=== PATIENT | female | born 1975 | race Caucasian/White ===

== ENCOUNTER 2016-12-29 13:32 | Outpatient (CLI) | payer BC ==
[~2016-12-29] VITALS: Ht 158.8 cm; Wt 110.2 kg
[2016-12-29 13:43] VITALS: BP 123/84
[2016-12-29] MEDS ORDERED: ASPI-586 PO (14:27)
[2016-12-29] MEDS ORDERED: ESCI20TA45 PO (14:27)
[2016-12-29] MEDS ORDERED: BUPR100T8 PO (14:27)
[2016-12-29] MEDS ORDERED: IBUP-2055 PO (14:27)
[2016-12-29] MEDS ORDERED: PSYL0.5244 PO (14:27)
[2016-12-29] MEDS ORDERED: OMEP20TA33 PO (14:27)
[2016-12-29] MEDS ORDERED: RT-ALBUINH IH (14:27)
[2016-12-29] MEDS ORDERED: AMOX1TAB12 PO (14:27)
[2016-12-29] MEDS ORDERED: MELA1TAB15 PO (14:27)
[2016-12-29] MEDS ORDERED: IPRA3AMP IH (14:27)
[2016-12-29] MEDS ORDERED: VITA100033 PO (14:27)
[2016-12-29] MEDS ORDERED: GABA-488 PO (14:27)
== END 2016-12-29 14:00 | disposition home or self-care (01) ==
LOC: PREOP 13:32
PROVIDERS: ATTEND Podiatrist Foot Surgery
DX: Z01.818 Encounter for other preprocedural examination (principal); M72.2 Plantar fascial fibromatosis
CPT/HCPCS: 87081

== ENCOUNTER 2016-12-31 06:00 | Day surgery (SDC) | payer BC ==
--- NOTE | 2016-12-29 18:57 | HISTORY AND PHYSICAL ---
DATE OF SERVICE: DATE OF ADMISSION: 12/31/2016. CHIEF COMPLAINT: "Have right foot pain, I have plantar fasciitis, want it corrected, Dr. Kingston to do it this Tuesday." ALLERGIC TO MEDICATIONS: SULFA AND ____. MEDICATIONS: Now on has a list, Prilosec, ibuprofen, daily fiber, vitamin E, melatonin, baby aspirin, bupropion SR, Celexa 20 mg, breathing treatments, ipratropium bromide and albuterol sulfate, albuterol inhaler p.r.n., gabapentin 300 mg a day, Augmentin for a bite, animal. PAST SURGICAL HISTORY: Open heart, holes in it; complete hysterectomy. The patient states she saw ____ last at [place], [place] and told it was okay to have surgery. FAMILY HISTORY: Dad, diabetes and heart disease. Denies asthma, TB, lung disease or cancer. REVIEW OF SYSTEMS: HEAD: Denies headache, dizziness. EYES, EARS, NOSE AND THROAT: Denies diplopia, tinnitus, sore throat. RESPIRATORY: The patient states she has asthma. The patient states she never smoked. "I get a cough." Denies short of breath or wheezing at this moment. HEART: No history of heart problems or chest pain. Just checked out by [employer] last week. GASTROINTESTINAL: Appetite good. Denies blood in the stools, diarrhea, constipation, nausea or vomiting. GENITOURINARY: Denies blood, pain or frequency. PHYSICAL EXAMINATION: GENERAL: The patient is a white female, well nourished, well developed, in no acute respiratory distress at rest. VITAL SIGNS: Weight 241, blood pressure 120/80, pulse 84. EARS: No drainage noted. EYES: No conjunctivitis or icterus. THROAT: Noninflamed. Tonsils removed. NECK: Thyroid not enlarged. No abnormal cervical lymphadenopathy noted. HEART: Regular rate and rhythm. LUNGS: Clear to auscultation. ABDOMEN: Soft. Liver and spleen nonpalpable. LOWER EXTREMITIES: Good dorsalis pedis pulses. The patient is okay to have surgery, will be on standby if has any problems. Job ID: [id number] DocumentID: [id number] Dictated Date: 12/29/2016 15:18:15 Farmworker Animal Date: 12/29/2016 16:43:22 Dictated By: FELIX KULKARNI DO
[~2016-12-31] VITALS: Ht 158.8 cm; Wt 110.2 kg
[~2016-12-31 06:00] MED LIST: AMOX1TAB12 PO; ASPI-586 PO; BUPR100T8 PO; ESCI20TA45 PO; GABA-488 PO; IBUP-2055 PO; IPRA3AMP IH; MELA1TAB15 PO; OMEP20TA33 PO; PSYL0.5244 PO; RT-ALBUINH IH; VITA100033 PO
[2016-12-31 06:30] VITALS: BP 125/84
[2016-12-31] MEDS ORDERED: LACTATED RINGERS 1,000 ML IV PRN ×2 (06:31→07:43)
[2016-12-31] MEDS ORDERED: proPOfol 200 MG/20 ML (DIPRIVAN) VIAL IV ONE (06:42)
[2016-12-31] MEDS ORDERED: SEVOFLURANE (ULTANE) 15 ML INHAL SOLN ONE (06:42)
[2016-12-31] MEDS ORDERED: MIDAZOLAM 2 MG/2 ML (VERSED) VIAL ONE (06:42)
[2016-12-31] MEDS ORDERED: LIDOCAINE PF 2% 5 ML (XYLOCAINE) VIAL ONE (06:42)
[2016-12-31] MEDS ORDERED: fentaNYL INJECTION 100 MCG/2 ML AMP ONE (06:42)
[2016-12-31] MEDS ORDERED: ONDANSETRON 4 MG/2 ML (SDV) Z0FRAN ONE (06:42)
[2016-12-31] MEDS ORDERED: DEXAMETHASONE 10 MG/ML (DECADRON) 1 ML VIAL ONE ×2 (06:42→07:05)
[2016-12-31] MEDS ORDERED: FAMOTIDINE 20MG/2ML IV (PEPCID) ONE (06:50)
[2016-12-31] MEDS ORDERED: MEPIVACAINE (CARBOCAINE) 2% 20 ML VIAL ONE (07:05)
[2016-12-31] MEDS ORDERED: BUPIVACAINE 0.25% 30 ML (SENSORCAINE) VIAL ONE (07:05)
[2016-12-31] MEDS ORDERED: ceFAZolin 1,000 MG (ANCEF) VIAL ONE (07:28)
[2016-12-31] MEDS ORDERED: NS (IVPB) 50 ML ONE (07:28)
--- NOTE | 2016-12-31 07:41 | Progress Note-Pre Operative ---
Pre-Operative Progress Note H&P Reviewed The H&P was reviewed, patient examined and no changes noted. Date Seen by Provider: Dec 31, 2016 Time Seen by Provider: 07:30 Date H&P Reviewed: Dec 31, 2016 Time H&P Reviewed: 07:30 Pre-Operative Diagnosis: plantar fascitis right foot. FELIX LAYTON DPM Dec 31, 2016 7:41 am
[2016-12-31] MEDS ORDERED: ONDANSETRON 4 MG/2 ML (SDV) Z0FRAN IVP PRN (07:45)
[2016-12-31] MEDS ORDERED: morphine INJ 10 MG/ML 1ML (SYR OR VIAL) IVP PRN (07:45)
[2016-12-31] MEDS ORDERED: FAMOTIDINE 20MG/2ML IV (PEPCID) IV ONE (07:45)
[2016-12-31] MEDS ORDERED: ceFAZolin 1 GM/NS 50 ML IVPB IV ONE ×2 (08:30)
--- NOTE | 2016-12-31 08:38 | Progress Note-Post Operative ---
Post-Operative Progess Note Surgeon (s)/Fitter/Welder (s) Surgeon FELIX LAYTON DPM Fitter/Welder: none Pre-Operative Diagnosis plantar fascitis right foot. Post-Operative Diagnosis same Procedure & Operative Findings Date of Procedure 12/31/16 Procedure Performed/Findings endoscopic plantar fasciotomy ribght foot Anesthesia Type general with infiltration Estimated Blood Loss Estimated blood loss (mL): min Specimens/Packing Specimens Removed none FELIX LAYTON DPM Dec 31, 2016 8:38 am
--- NOTE | 2016-12-31 08:38 | Discharge Instructions ---
Discharge Instructions Discharge Medications New, Converted or Re-Newed RX: RX Given to Pt/Family Patient Instructions Patient Instructions 1. Follow up in office in 2 weeks. 2. Diet as tolerated. 3. Activity as tolerated. Activity & Diet Activity as Tolerated: Yes FELIX LAYTON DPM Dec 31, 2016 8:38 am
[2016-12-31] MEDS ORDERED: LACTATED RINGERS 1,000 ML IV SCH (08:40)
[2016-12-31] MEDS ORDERED: HYDROcodone/APAP 5 MG/325 MG (LORTAB) TAB PO PRN (08:45)
[2016-12-31 09:05] VITALS: BP 113/75
[2016-12-31 09:35] VITALS: BP 111/75
[2016-12-31] MEDS ORDERED: HYDR-3875 PO (09:35)
[2016-12-31 10:05] VITALS: BP 108/74
[2016-12-31 10:35] VITALS: BP 108/74
--- NOTE | 2016-12-31 10:45 | Physical Therapy Ortho Eval ---
PT Orthopedic Evaluation Type of Surgery Plantar Fascitis Prior Level of Function Current Living Status: Significant Other Locomotion (Upon Admit): Independent Established Durable Medical Eq: Crutches Patient owns crutches and has used them in the past. Motor Control Motor Control: Motor Control WNL ROM R foot currently limited due to s/p plantar fascitis Strength Strength: WFL Transfer Transfers (B, C, W/C) (FIM): 6 Gait Gait Assistive Device: Crutches Patient ambulates WBAT with crutches. She is instructed on proper ambulation with crutches Right Lower Extremity: Right Weight Bearing Status RLE: Weight Bearing/Tolerated Left Lower Extremity: Left Weight Bearing Status LLE: Full Weight Bearing Gait (FIM): 1 Distance (FIM): 1=up to 49 ft Distance: 25' Summary/Comments patient demonstrated knowledge of proper ambulation with crutches Treatment Rendered Treatment: Gait Train Assessment/Goals Goal Time Frame: 1 Visit Understands HEP: Yes Safe Ambulation: Yes Plan Treatment Plan: Discharge PT/Family Agrees to Plan: Yes Time Time In: 1015 Time Out: 1025 Total Billed Treatment Time: 10 Billed Treatment Time 1 visit EVL 10 min EARL STANLEY PT Dec 31, 2016 10:45
--- NOTE | 2016-12-31 12:20 | OPERATIVE REPORT ---
DATE OF SERVICE: 12/31/2016 PREOPERATIVE DIAGNOSIS: Plantar fasciitis, right foot. POSTOPERATIVE DIAGNOSIS: Plantar fasciitis, right foot. NAME OF OPERATION: Endoscopic plantar fasciotomy, right foot. DESCRIPTION OF OPERATION: With the patient in the supine position having been ____ by general anesthetic, sterile prep and drape were performed and a Christopher bandage was applied above the level of the right ankle. Appropriate measurements were taken and a 1 cm incision was made in the medial aspect of the left heel. This was deepened with the sharp and blunt dissection. Channeling instrument was then placed medially to laterally through and through the left heel. Trocar and cannula were placed and the plantar fascia was identified. A hook knife was then placed into the cannula and the middle slip of the plantar fascia was released in toto. The plantar aspect of the right foot was thoroughly palpated. At this time, it was appreciated. There had been total release of the plantar fascia. The cannula was removed. The incisions were closed medially and laterally with one horizontal mattress suture of 4-0 Prolene. The surgical site was infiltrated with 5 mL of 50:50 mixture of 0.5% Marcaine plain, 1% Carbocaine plain and 10 mg of Decadron. Following removal of the tourniquet, Adaptic with sterile corrective compressive dressing were applied, carried above the level of the right ankle, covered with circular Coban. The patient tolerated the procedure well with minimal blood loss and left the OR to the PAR in apparent good condition. She is to be seen in the office in 2 weeks for appropriate followup care. Job ID: [id number] DocumentID: [id number] Dictated Date: 12/31/2016 08:48:54 Dental Resident Date: 12/31/2016 12:19:27 Dictated By: FELIX LAYTON DPM
== END 2016-12-31 10:35 | disposition home or self-care (01) ==
LOC: SDC 06:00
PROVIDERS: ATTEND Podiatrist Foot Surgery
DX: M72.2 Plantar fascial fibromatosis (principal); I10 Essential (primary) hypertension; E78.2 Mixed hyperlipidemia; K21.9 Gastro-esophageal reflux disease without esophagitis; J45.909 Unspecified asthma, uncomplicated; M41.9 Scoliosis, unspecified; E66.01 Morbid (severe) obesity due to excess calories; Z68.41 Body mass index [BMI] 40.0-44.9, adult; Z79.899 Other long term (current) drug therapy

== ENCOUNTER 2019-04-17 15:15 | Emergency (ER) | payer BC ==
[~2019-04-17] VITALS: Ht 157 cm; Wt 90.7 kg
[~2019-04-17 15:15] MED LIST changes: +HYDR-3875 PO; -IBUP-2055 PO; +IBUP-2473 PO; -IPRA3AMP IH; +IPRA3AMP31 IH; +LORA0.5T
[2019-04-17] MEDS ORDERED: LIDOCAINE/EPI 2% 1:100,00 (XYLOCAINE) 20 ML VIAL ONE ×2 (15:18→15:45)
[2019-04-17] MEDS ORDERED: ONDANSETRON 4 MG/2 ML (SDV) Z0FRAN ONE (15:28)
--- NOTE | 2019-04-17 15:40 | NUR ---
TECH IRRIGATED WOUND PER DR ORDER WITH NS.
[2019-04-17 15:59] LABS: CARBON DIOXIDE 22 MMOL/L (21-32); CHLORIDE 95 MMOL/L (98-107); SODIUM 133 MMOL/L (135-145)
[2019-04-17 16:00] LABS: BILIRUBIN,TOTAL 0.7 MG/DL (0.1-1.0); BUN/CREATININE RATIO 19; CALCIUM 9.3 MG/DL (8.5-10.1); CREATININE SERUM 0.53 MG/DL (0.60-1.30); GFR ESTIMATED > 60; GLUCOSE 475 MG/DL (70-105)
[2019-04-17] MEDS ORDERED: IOHEXOL 350 MG/ML 100 ML (OMNIPAQUE 350) VIAL IV ONE (16:00)
[2019-04-17] MEDS ORDERED: NS 100 ML (IVPB) BAG IV ONE (16:00)
[2019-04-17] MEDS ORDERED: HOLD METFORMIN - RECEIVED CONTRAST 20 ML VIAL IV SCH (16:00)
[2019-04-17] MEDS ORDERED: CATHETER FLUSH 10 ML SYR IV PRN (16:00)
[2019-04-17 16:01] LABS: ALANINE AMINOTRANSFERASE 94 U/L (0-55); ALBUMIN 4.5 GM/DL (3.2-4.5); ALKALINE PHOSPHATASE 160 U/L (40-136); WHITE BLOOD COUNT 4.6 10^3/uL (4.3-11.0)
[2019-04-17 16:02] LABS: BASOPHILS % (AUTO) 0 % (0-10); EOSINOPHILS # (AUTO) 0.2 10^3/uL (0.0-0.3); EOSINOPHILS % (AUTO) 5 % (0-10); HEMATOCRIT 39 % (35-52); HEMOGLOBIN 14.6 G/DL (11.5-16.0); LYMPHOCYTES # (AUTO) 1.9 X 10^3 (1.0-4.0); LYMPHOCYTES % (AUTO) 41 % (12-44); MEAN CORPUSCULAR HEMOGLOBIN 31 PG (25-34); MEAN CORPUSCULAR HGB CONC 37 G/DL (32-36); MEAN CORPUSCULAR VOLUME 83 FL (80-99); MEAN PLATELET VOLUME 10.1 FL (7.4-10.4); MONOCYTES # (AUTO) 0.4 X 10^3 (0.0-1.0); MONOCYTES % (AUTO) 9 % (0-12); NEUTROPHILS # (AUTO) 2.1 X 10^3 (1.8-7.8); NEUTROPHILS % (AUTO) 44 % (42-75); PLATELET COUNT 242 10^3/uL (130-400); RED CELL DISTRIBUTION WIDTH 12.1 % (10.0-14.5)
[2019-04-17] MEDS ORDERED: fentaNYL INJECTION 100 MCG/2 ML AMP IVP PRN (16:15)
[2019-04-17] MEDS ORDERED: LIDOCAINE/EPI 2% 1:100,00 (XYLOCAINE) 20 ML VIAL INJ ONE ×2 (16:15)
[2019-04-17] MEDS ORDERED: PROMETHAZINE INJ 25 MG/ML (PHENERGAN) AMP IVP ONE (16:15)
[2019-04-17 16:23] LABS: INR 0.9 (0.8-1.4); PROTHROMBIN TIME PATIENT 12.2 SEC (12.2-14.7)
--- NOTE | 2019-04-17 16:27 | ED General ---
General Chief Complaint: Bite-Animal/Human/Insect Stated Complaint: ANIMAL BITE IN CHEEK Nursing Triage Note: ARRIVED VIA AMB TO ER HOLDING LEFT SIDE OF NECK WITH A BLOODY RAG. PT STATES ONE OF HER EXOTIC ANIMALS BIT HER ET STATES THE ANIMAL HAS LONG TEETH. PT STATES IF SHE TAKES THE RAGS OFF THE BLOOD WILL SQUIRT. PT DOES NOT WANT TO STATE THE TYPE OF ANIMAL. PT Nursing Sepsis Screen: No Definite Risk History of Present Illness Date Seen by Provider: Apr 17, 2019 Time Seen by Provider: 16:23 Initial Comments Patient presenting to emergency department for evaluation of animal bite wound to her left face and neck. She would not initially commit to what animal was other than saying it was an exotic animal. She then said that it was a [place]. She explained that it is in the possum family and it is intelligent and is in its sexual phase and became more aggressive and appears to have bit her several times. She said her wound was bleeding profusely initially and her wound does continue to bleed on arrival here in the emergency department but there does not appear to be any arterial bleeding. I asked her how long the teeth were and she estimated approximately 2-3 inches. She says her tetanus and rabies vaccinations are up-to-date and the animals vaccinations are up-to-date as well. She denies any other injuries and appears uncomfortable but is nontoxic. Allergies and Home Medications Allergies Coded Allergies: Sulfa (Sulfonamide Antibiotics) (Verified Allergy, Unknown, RASH, 12/29/16) fluticasone furoate (Verified Allergy, Unknown, ANAPHYLAXIS, 12/29/16) vilanterol (Verified Allergy, Unknown, ANAPHYLAXIS, 12/29/16) Home Medications Albuterol Sulfate 1 Puff Puff, 2 PUFF IH Q4H PRN for WHEEZING, (Reported) 1 PUFF = 90 MCG Amoxicillin/Potassium Clav 1 Each Tablet, 1 EACH PO BID, (Reported) Aspirin 81 Mg Tablet.dr, 81 MG PO HS, (Reported) Bupropion HCl 100 Mg Tablet.er, 100 MG PO HS, (Reported) Escitalopram Oxalate 20 Mg Tablet, 20 MG PO HS, (Reported) Gabapentin 300 Mg Capsule, 300 MG PO TID, (Reported) Hydrocodone/Acetaminophen 1 Each Tablet, 1 TAB PO Q4-6 PRN for PAIN Prescribed by: ADAMA MEDRANO on 12/31/16 0935 Ibuprofen 200 Mg Tablet, 600 MG PO HS, (Reported) take 3 (200mg) tabs Ipratropium/Albuterol Sulfate 3 Ml Ampul.neb, 3 ML IH Q4H PRN for SHORTNESS OF BREATH, (Reported) Melatonin/Pyridoxine 1 Each Tablet, 5 MG PO HS, (Reported) Omeprazole Magnesium 20 Mg Tablet.dr, 20 MG PO DAILY, (Reported) Psyllium Husk 0.52 Gm Capsule, 0.52 GM PO HS, (Reported) Vitamin E Mixed 1,000 Unit Capsule, 1,000 UNIT PO HS, (Reported) Patient Home Medication List Home Medication List Reviewed: Yes Review of Systems Review of Systems Constitutional: no symptoms reported EENTM: no symptoms reported Respiratory: no symptoms reported Cardiovascular: no symptoms reported Gastrointestinal: nausea Musculoskeletal: no symptoms reported Skin: see HPI All Other Systems Reviewed Negative Unless Noted: Yes Past Shloukn-Zgycbx-Tevenb Hx Patient Social History Alcohol Use: Denies Use Recreational Drug Use: No Smoking Status: Never a Smoker Recent Foreign Travel: No Contact w/Someone Who Travel: No Recent Infectious Disease Expo: No Recent Hopitalizations: No Immunizations Up To Date Tetanus Booster (TDap): Unknown Seasonal Allergies Seasonal Allergies: Yes Past Medical History Surgeries: Yes (OPEN HEART SX FOR 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 AGE 26, BREAST LUMPECTOMY, R BUNIONECTOMY ) Hysterectomy Respiratory: Yes Asthma Cardiac: Yes (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 0.0oz. [id number]; 36.00 BMI Method:Stated General Appearance: No Apparent Distress, WD/WN HEENT: PERRL/EOMI Neck: Supple Respiratory: Lungs Clear, No Respiratory Distress Cardiovascular: Regular Rate, Rhythm Gastrointestinal: Non Tender, Soft Back: Normal Inspection Extremity: Normal Capillary Refill Neurologic/Psychiatric: Alert, Oriented x3 Skin: Other (Large deep laceration to left face and neck. Active bleeding with unclear source. There are 4 lacs total. Largest is appx 6cm, then there is a 2cm, and 2 1cm lacs above the large lac.) Procedures/Interventions Wound Location: Face, Neck Wound Length (cm): 10 Wound's Depth, Shape: into muscle, irregular, contused tissue, sub Q Wound Explored: no foreign body removed Irrigated w/ Saline (ccs): 500 Betadine Prep?: No Anesthesia: Lidocaine w/ Epi Volume Anesthetic (ccs): 20 Wound Debrided: moderate Suture: Monocryl Suture Size: 4-0 Number of Sutures: 15 Layer Closure?: 1 Sterile Dressing Applied?: Yes Progress Patient prepped and draped in normal sterile fashion. Approximately 10 cc of lidocaine with epinephrine were used initially and then another 10 cc were needed later on for the additional lacerations. Wound cleansed with chlorhexidine soap and irrigated with 500 cc of saline. There was moderate amount of active bleeding initially and pressure was held in between the times I was placing sutures. Wound continued to use until he put in approximately 10 sutures in the large complex laceration and then 5 additional sutures were used for the other lacerations. Progress/Results/Core Measures Suspected Sepsis Recent Fever Within 48 Hours: No Infection Criteria Present: None New/Unexplained Altered Menta: No Sepsis Screen: No Definite Risk SIRS Temperature: Pulse: 107 Respiratory Rate: 16 Laboratory Tests 04/17/19 15:30: White Blood Count 4.6 Blood Pressure 152 /105 Mean: 121 Laboratory Tests 04/17/19 15:30: Creatinine 0.53L, INR Comment 0.9, Platelet Count 242, Total Bilirubin 0.7 Results/Orders Lab Results Laboratory Tests Test 04/17/19 15:30 Range/Units White Blood Count 4.6 4.3-11.0 10^3/uL Red Blood Count 4.76 4.35-5.85 10^6/uL Hemoglobin 14.6 11.5-16.0 G/DL Hematocrit 39 35-52 % Mean Corpuscular Volume 83 80-99 FL Mean Corpuscular Hemoglobin 31 25-34 PG Mean Corpuscular Hemoglobin Concent 37 H 32-36 G/DL Red Cell Distribution Width 12.1 10.0-14.5 % Platelet Count 242 130-400 10^3/uL Mean Platelet Volume 10.1 7.4-10.4 FL Neutrophils (%) (Auto) 44 42-75 % Lymphocytes (%) (Auto) 41 12-44 % Monocytes (%) (Auto) 9 0-12 % Eosinophils (%) (Auto) 5 0-10 % Basophils (%) (Auto) 0 0-10 % Neutrophils # (Auto) 2.1 1.8-7.8 X 10^3 Lymphocytes # (Auto) 1.9 1.0-4.0 X 10^3 Monocytes # (Auto) 0.4 0.0-1.0 X 10^3 Eosinophils # (Auto) 0.2 0.0-0.3 10^3/uL Basophils # (Auto) 0.0 0.0-0.1 10^3/uL Prothrombin Time 12.2 12.2-14.7 SEC INR Comment 0.9 0.8-1.4 Activated Partial Thromboplast Time 22 L 24-35 SEC Sodium Level 133 L 135-145 MMOL/L Potassium Level 4.0 3.6-5.0 MMOL/L Chloride Level 95 L 98-107 MMOL/L Carbon Dioxide Level 22 21-32 MMOL/L Anion Gap 16 H 5-14 MMOL/L Blood Urea Nitrogen 10 7-18 MG/DL Creatinine 0.53 L 0.60-1.30 MG/DL Estimat Glomerular Filtration Rate > 60 BUN/Creatinine Ratio 19 Glucose Level 475 *H 70-105 MG/DL Calcium Level 9.3 8.5-10.1 MG/DL Corrected Calcium 8.9 8.5-10.1 MG/DL Total Bilirubin 0.7 0.1-1.0 MG/DL Aspartate Amino Transf (AST/SGOT) 60 H 5-34 U/L Alanine Aminotransferase (ALT/SGPT) 94 H 0-55 U/L Alkaline Phosphatase 160 H 40-136 U/L Total Protein 7.0 6.4-8.2 GM/DL Albumin 4.5 3.2-4.5 GM/DL My Orders Orders - IBETH ROSENBAUM DO Lidocaine/Epi 2% 1:100,000 (Xylocaine/Ep (04/17/19 15:18) Ondansetron Injection (Zofran Injectio (04/17/19 15:28) Cbc With Automated Diff (04/17/19 15:39) Comprehensive Metabolic Panel (04/17/19 15:39) Partial Thromboplastin Time (04/17/19 15:39) Protime With Inr (04/17/19 15:39) Ct Angio Neck W (04/17/19 15:39) Lidocaine/Epi 2% 1:100,000 (Xylocaine/Ep (04/17/19 15:45) Iohexol Injection (Omnipaque 350 Mg/Ml 1 (04/17/19 16:00) Received Contrast (Hold Metformin- Contr (04/17/19 16:00) Ns (Ivpb) (Sodium Chloride 0.9% Ivpb Bag (04/17/19 16:00) Sodium Chloride Flush (Catheter Flush Sy (04/17/19 16:00) Fentanyl Injection (Sublimaze Injection (04/17/19 16:15) Promethazine Injection (Phenergan Injec (04/17/19 16:15) Lidocaine/Epi 2% 1:100,000 (Xylocaine/Ep (04/17/19 16:15) Lidocaine/Epi 2% 1:100,000 (Xylocaine/Ep (04/17/19 16:15) Cefazolin 2 Gm/50 Ml Ns (Ancef 2 Gm/50 M (04/17/19 16:30) Ns Iv 1000 Ml (Sodium Chloride 0.9%) (04/17/19 16:30) Insulin (Regular) Human (Humulin R (Per (04/17/19 16:30) Cefazolin Injection (Ancef Injection) (04/17/19 17:30) Cefazolin Injection (Ancef Injection) (04/17/19 17:30) Medications Given in ED Current Medications Medications Dose Ordered Sig/Naif Route Start Time Stop Time Status Last Admin Dose Admin Cefazolin Sodium 1000 mg/Sterile Water 10 ml @ 200 mls/hr ONCE ONCE IV 04/17/19 17:30 04/17/19 17:32 DC 04/17/19 17:52 200 MLS/HR Fentanyl Citrate 50 mcg Q1H PRN IVP 04/17/19 16:15 04/17/19 16:07 50 MCG Insulin Human Regular 10 unit ONCE ONCE IV 04/17/19 16:30 04/17/19 16:31 DC 04/17/19 17:11 10 UNIT Iohexol 100 ml ONCE ONCE IV 04/17/19 16:00 04/17/19 16:01 DC 04/17/19 16:36 75 ML Lidocaine/ Epinephrine 20 ml ONCE ONCE INJ 04/17/19 16:15 04/17/19 16:16 DC 04/17/19 16:11 20 ML Ondansetron HCl 4 mg STK-MED ONCE .ROUTE 04/17/19 15:28 04/17/19 15:34 DC 04/17/19 15:37 8 MG Promethazine HCl 12.5 mg ONCE ONCE IVP 04/17/19 16:15 04/17/19 16:16 DC 04/17/19 16:07 12.5 MG Sodium Chloride 10 ml NEEDED PRN IV 04/17/19 16:00 04/17/19 16:36 10 ML Sodium Chloride 100 ml ONCE ONCE IV 04/17/19 16:00 04/17/19 16:01 DC 04/17/19 16:36 80 ML Vital Signs/I&O 04/17/19 15:15 Temp 37.0 Pulse 107 Resp 16 B/P (MAP) 152/105 (121) Pulse Ox 98 O2 Delivery Room Air Capillary Refill : Less Than 3 Seconds Blood Pressure Mean: 121 Progress Note : Progress Note Patient has a large left complex facial laceration. CT imaging showed no damage to vascular structures but she does have a large hematoma in addition to possible glandular structure damage. I spoke to the trauma surgeon at [facility] Marlene Luna and he said that he could wash out the wound and keep her on antibiotics but they have no ENT or plastics available and he thinks that given there is possible glandular involvement he would prefer her to be sent to a facility with plastics and ENT. I spoke to [facility] and asked if I could speak to the plastic surgeon as she could potentially follow-up as an outpatient but they said that they require her to be transferred and evaluated at the trauma center and then will make further disposition planning including possible further surgery. She was given medications for pain and nausea in addition to Ancef. Patient will be transferred in stable condition via EMS. Departure Impression Primary Impression: Bite by animal Additional Impressions: Complex laceration of face Transaminitis Diabetes mellitus, new onset Disposition: 02 XFER SHT-TRM HOSP Condition: Stable Transfer Transfer Reason: Exceeds level of care Time Spoke to Accepting Phy: 17:30 Transfer Facility: [facility] Method of Transfer: EMS Departure-Patient Inst. Referrals: MEHDI SCHAEFER MD (PCP/Family) Primary Care Physician IBETH ROSENBAUM DO Apr 17, 2019 16:27
[2019-04-17] MEDS ORDERED: inSUlin (REGULAR) HUMAN 1 UNIT/0.01 ML (CHARGE PER UNIT) IV ONE (16:30)
[2019-04-17] MEDS ORDERED: NS IV 1000 ML 1,000 ML IV SCH (16:30)
[2019-04-17] MEDS ORDERED: ceFAZolin 2 GM/50 ML NS 50 ML IV ONE (16:30)
[2019-04-17] MEDS ORDERED: ceFAZolin INJECTION 1,000 MG in WATER (STERILE) FOR INJECTION 10 ML IV ONE ×4 (17:30)
--- NOTE | 2019-04-17 17:38 | Diagnostic Imaging Report ---
INDICATION: Animal bite in the left neck with bleeding. CT imaging of the neck is performed after bolus intravenous administration of iodinated contrast. There is rather extensive gas within the tissues of the left neck with diffuse edema, inflammation and hemorrhage. There is an approximately 1.9 x 1.9 x 2.9 cm hyperdense focus which likely represents hematoma just lateral to the mandibular angle. There is no evidence of injury to the great vessels of the neck. No active contrast extravasation is identified. There may be mild edema or hemorrhage in the left parotid salivary gland. Parotid glands otherwise have low density indicating fatty infiltration. No submandibular hematoma is identified. There is small amount of gas involving the left submandibular salivary gland. No airway encroachment is identified. Thyroid gland is unremarkable in appearance. Note is made of focal lucency in the left cerebellopontine angle which could be secondary to lipoma or epidermoid. There is no evidence of acute osseous abnormality. IMPRESSION: Contusion and hematoma in the left neck with largest hematoma lateral to the left mandibular angle. There may be mild involvement of the left parotid and submandibular salivary glands with significant gas within the soft tissues. There is no evidence of acute osseous abnormality and no great vessel injury is identified. Dictated by: Dictated on workstation # [id number]
[2019-04-17 18:28] VITALS: BP 132/85
== END 2019-04-17 18:28 | disposition short-term general hospital (02) ==
LOC: EDUNIT# 15:15 → ER FS 15:16
DX: S01.81XA Laceration without foreign body of other part of head, initial encounter (principal); S11.91XA Laceration without foreign body of unspecified part of neck, initial encounter; S01.85XA Open bite of other part of head, initial encounter; J45.909 Unspecified asthma, uncomplicated; E11.9 Type 2 diabetes mellitus without complications; F32.9 Major depressive disorder, single episode, unspecified; R74.0 Nonspecific elevation of levels of transaminase and lactic acid dehydrogenase [LDH]; Z88.2 Allergy status to sulfonamides; Z88.8 Allergy status to other drugs, medicaments and biological substances; Z79.82 Long term (current) use of aspirin; W55.81XA Bitten by other mammals, initial encounter
CPT/HCPCS: 12054; 36415; 70498; 80053; 82962; 85025; 85610; 85730

== ENCOUNTER 2019-09-13 11:17 | Emergency (ER) | payer BC ==
[~2019-09-13] VITALS: Ht 157.5 cm; Wt 95.7 kg
[2019-09-13] MEDS ORDERED: methylPREDNISolone 125 MG (Solu-MEDROL) VIAL IVP STA (11:25)
[2019-09-13] MEDS ORDERED: FAMOTIDINE 20MG/2ML IV (PEPCID) IVP STA (11:25)
[2019-09-13] MEDS ORDERED: RT-ALBUTEROL/IPRATROPIUM 3 ML (DUONEB) VIAL INH ONE (11:30)
[2019-09-13] MEDS ORDERED: diphenhydrAMINE 50 MG/ML INJ (BENADRYL) IVP ONE (11:30)
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
--- OUTSIDE RECORDS SUMMARY | 2019-09-13 12:29 | XMS REPORT | Continuity of Care Document ---
Author Organization Unknown Address Unknown Phone Unavailable Allergies Active Description Code Type Severity Reaction Onset Reported/Identified Relationship to Patient Clinical Status Yes fluticasone furoate [id number] Drug Allergy Unknown ANAPHYLAXIS 12/29/2016 Yes Sulfa (Sulfonamide Antibiotics) [id number] Drug Allergy Unknown RASH 017 Yes vilanterol [id number] Drug Allerg y Unknown ANAPHYLAXIS 12/29/2016 Medications There is no data. Problems Date Dx Coded Attending Type Code Diagnosis Diagnosed By 12/31/2016 FELIX LAYTON DPM Ot E66.01 MORBID (SEVERE) OBESITY DUE TO EXCESS CA 12/31/2016 FELIX LAYTON DPM Ot E78.2 MIXED HYPERLIPIDEMIA 12/31/2016 FELIX LAYTON DPM Ot I 10 ESSENTIAL (PRIMARY) HYPERTENSION 12/31/2016 FELIX LAYTON DPM Ot J45.909 UNSPECIFIED ASTHMA, UNCOMPLICATED 12/31/2016 FELIX LAYTON DPM Ot K21.9 GASTRO-ESOPHAGEAL REFLUX DISEASE WITHOUT 12/31/2016 FELIX LAYTON DPM Ot M41.9 SCOLIOSIS, UNSPECIFIED 12/31/2016 FELIX LAYTON DPM Ot M72.2 PLANTAR FASCIAL FIBROMATOSIS 12/31/2016 FELIX LAYTON DPM Ot Z68.41 BODY MASS INDEX (BMI) 40.0-44.9, ADULT 12/31/2016 FELIX LAYTON DPM Ot Z79.899 OTHER RETIREMENT (CURRENT) DRUG THERAPY 01/03/2017 FELIX LAYTON DPM Ot E66.01 MORBID (SEVERE) OBESITY DUE TO EXCESS CA 01/03/2017 FELIX LAYTON DPM Ot E78.2 MIXED HYPERLIPIDEMIA 01/03/2017 FELIX LAYTON DPM Ot I 10 ESSENTIAL (PRIMARY) HYPERTENSION 01/03/2017 FELIX LAYTON DPM Ot J45.909 UNSPECIFIED ASTHMA, UNCOMPLICATED 01/03/2017 FELIX LAYTON DPM Ot K21.9 GASTRO-ESOPHAGEAL REFLUX DISEASE WITHOUT 01/03/2017 CALIN DPM, FELIX P Ot M41.9 SCOLIOSIS, UNSPECIFIED 01/03/2017 LAYTON DPM, FELIX P Ot M72.2 PLANTAR FASCIAL FIBROMATOSIS 01/03/2017 CALIN DPTulio, FELIX P Ot Z68.41 BODY MASS INDEX (BMI) 40.0-44.9, ADULT 01/03/2017 LAYTON DPM, FELIX Dang Ot Z79.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 01/04/2017 CALIN DPM, FELIX Dang Ot M72.2 PLANTAR FASCIAL FIBROMATOSIS 01/04/2017 CALIN DPM, FELIX Dang Ot Z01.818 ENCOUNTER FOR OTHER PREPROCEDURAL EXAMIN 08/09/2017 KAITLYN FROSTP Ot F32.9 MAJOR DEPRESSIVE DISORDER, SINGLE EPISOD 08/09/2017 MARGOT, KAITLYN CAFE AIDE Ot J45.909 UNSPECIFIED ASTHMA, UNCOMPLICATED 08/09/2017 MARGOT, KAITLYN CAFE AIDE Ot R42 DIZZINESS AND GIDDINESS 08/09/2017 MARGOT, KAITLYN CAFE AIDE Ot R55 SYNCOPE AND COLLAPSE 08/09/2017 MARGOT KAITLYN CAFE AIDE Ot 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 (CURRENT) USE OF INHALED STERO 08/09/2017 MARGOT KAITLYN CAFE AIDE Ot Z79.82 RETIREMENT (CURRENT) USE OF ASPIRIN 08/09/2017 MARGOT KAITLYN CAFE AIDE Ot Z88.2 ALLERGY STATUS TO SULFONAMIDES STATUS 08/09/2017 MARGOT, KAITLYN CAFE AIDE Ot Z88.8 ALLERGY STATUS TO OTH DRUG/MEDS/BIOL SUB 08/09/2017 MARGOT KAITLYN CAFE AIDE Ot Z90.710 ACQUIRED ABSENCE OF BOTH CERVIX AND UTER 08/11/2017 KAITLYN FROST CAFE AIDE Ot F32.9 MAJOR DEPRESSIVE DISORDER, SINGLE EPISOD 08/11/2017 MARGOT, KAITLYN CAFE AIDE Ot J45.909 UNSPECIFIED ASTHMA, UNCOMPLICATED 08/11/2017 MARGOT KAITLYN CAFE AIDE Ot R42 DIZZINESS AND GIDDINESS 08/11/2017 MARGOT KAITLYN CAFE AIDE Ot R55 SYNCOPE AND COLLAPSE 08/11/2017 MARGOT KAITLYN CAFE AIDE Ot Z79.51 RETIREMENT (CURRENT) USE OF INHALED STERO 08/11/2017 MARGOT KAITLYN CAFE AIDE Ot Z79.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 MACHINE OPERATOR (CURRENT) USE OF ASPIRIN 08/11/2017 MARGOT KAILTYN CAFE AIDE Ot Z88.2 ALLERGY STATUS TO SULFONAMIDES STATUS 08/11/2017 KAITLYN FROST UNRULY Ot Z88.8 ALLERGY STATUS TO OTH DRUG/MEDS/BIOL SUB 08/11/2017 KAITLYN FROST UNRULY Ot Z90.710 ACQUIRED ABSENCE OF BOTH CERVIX AND UTER 04/17/2019 IBETH ROSENBAUM DO Ot E11 .9 TYPE 2 DIABETES MELLITUS WITHOUT COMPLIC 04/17/2019 IBETH ROSENBAUM DO Ot F32 .9 MAJOR DEPRESSIVE DISORDER, SINGLE EPISOD 04/17/2019 IBETH ROSENBAUM DO, Ot J45.909 UNSPECIFIED ASTHMA, UNCOMPLICATED 04/17/2019 IBETH ROSENBAUM DO Ot R74 .0 NONSPEC ELEV OF LEVELS OF TRANSAMNS LA 04/17/2019 IBETH ROSENBAUM DO, Ot S01.81XA LACERATION W/O FOREIGN BODY OF OTH PART 04/17/2019 IBETH ROSENBAUM DO, Ot S01.85XA OPEN BITE OF OTHER PART OF HEAD, INITIAL 04/17/2019 IBETH ROSENBAUM DO, Ot S11.91XA LACERATION W/O FOREIGN BODY OF UNSP PART 04/17/2019 IBETH ROSENBAUM DO, Ot W55.81XA BITTEN BY OTHER MAMMALS, INITIAL ENCOUNT 04/17/2019 IBETH ROSENBAUM DO, Ot Z79.82 COIL MACHINE OPERATOR (CURRENT) USE OF ASPIRIN 04/17/2019 IBETH ROSENBAUM DO, Ot Z88 .2 ALLERGY STATUS TO SULFONAMIDES STATUS 04/17/2019 IBETH ROSENBAUM DO, Ot Z88 .8 ALLERGY STATUS TO OTH DRUG/MEDS/BIOL SUB Procedures There is no data. Results Test Result Range Methicillin resistant Staphylococcus aur eus (MRSA) screening culture - 12/29/16 13:49 Methicillin resistant Staphylococcus aureus (MRSA) scr eening culture NEG NRG Complete blood count (CBC) with automate d white blood cell (WBC) differential - 08/09/17 12:42 Blood leukocytes automated count (number/volume) 6.9 10*3/uL 4.3-11.0 Blood erythrocytes automated count (number/volume) 4.57 10*6/uL 4.35-5.85 Venous blood hemoglobin measurement (mass/volume) 14.9 g/dL 11.5-16.0 Blood hematocrit (volume fraction) 39 % 35-52 Automated erythrocyte mean corpuscular volume 85 [ foz_us] 80-99 Automated erythrocyte mean corpuscular h emoglobin (mass per erythrocyte) 33 pg 25-34 Automated erythrocyte mean corpuscular h emoglobin concentration measurement (mass/volume) 38 g/dL 32-36 Automated erythrocyte distribution width ratio 12. 4 % 10.0- 14.5 Automated blood platelet count (count/volume) 236 10*3/uL 130-400 Automated blood platelet mean volume measurement 9.9 [foz_us] 7.4-10.4 Automated blood neutrophils/100 leukocytes 72 % 42-75 Automated blood lymphocytes/100 leukocytes 21 % 12-44 Blood monocytes/100 leukocytes 7 % 0-12 Automated blood eosinophils/100 leukocytes 0 % 0-10 Automated blood basophils/100 leukocytes 0 % 0-10 Blood neutrophils automated count (number/volume) 5.0 10*3 1.8-7.8 Blood lymphocytes automated count (number/volume) 1.5 10*3 1.0-4.0 Blood monocytes automated count (number/volume) 0. 5 10*3 0.0-1.0 Automated eosinophil count 0.0 10*3/uL 0 .0-0.3 Automated blood basophil count (count/volume) 0.0 10*3/uL 0.0-0.1 Comprehensive metabolic panel - 08/09/17 12:42 Serum or plasma sodium measurement (moles/volume) 140 mmol/L 135-145 Serum or plasma potassium measurement (moles/volume) 4.2 mmol/L 3.6-5.0 Serum or plasma chloride measurement (moles/volume) 107 mmol/L 98-107 Carbon dioxide 21 mmol/L 21-32 Serum or plasma anion gap determination (moles/volume) 12 mmol/L 5-14 Serum or plasma urea nitrogen measurement (mass/volume ) 8 mg/dL 7-18 Serum or plasma creatinine measurement (mass/volume) 0.67 mg/dL 0.60-1.30 Serum or plasma urea nitrogen/creatinine mass ratio 12 NRG Serum or plasma creatinine measurement w ith calculation of estimated glomerular filtration rate > NRG Serum or plasma glucose measurement (mass/volume) 137 mg/dL 70-105 Serum or plasma calcium measurement (mass/volume) 10.0 mg/dL 8.5-10.1 Serum or plasma total bilirubin measurement (mass/volu me) 1.0 mg/dL 0.1-1.0 Serum or plasma alkaline phosphatase fredy surement (enzymatic activity/volume) 92 U/L 40-136 Serum or plasma aspartate aminotransfera se measurement (enzymatic activity/volume) 50 U/L 5-34 Serum or plasma alanine aminotransferase measurement (enzymatic activity/volume) 80 U/L 0-55 Serum or plasma protein measurement (mass/volume) 7.4 g/dL 6.4-8.2 Serum or plasma albumin measurement (mass/volume) 4.8 g/dL 3.2-4.5 Magnesium - 08/09/17 12:42 Magnesium 2.3 mg/dL 1.8-2.4 PT panel in platelet poor plasma by coag ulation assay - 08/09/17 12:42 Prothrombin time (PT) in platelet poor plasma by coagu lation assay 12.8 s 12.2-14.7 INR in platelet poor plasma or blood by coagulation as say 1.0 0.8-1.4 Activated partial thromboplastin time (a PTT) in platelet poor plasma bycoagulation assay - 08/09/17 12:42 Activated partial thromboplastin time (a PTT) in platelet poor plasma bycoagulation assay 27 s 24-35 Serum or plasma troponin i.cardiac measu rement (mass/volume) - 08/09/17 12:42 Serum or plasma troponin i.cardiac measurement (mass/v olume) < ng/mL <0.30 Myoglobin, serum - 08/09/17 12:42 Myoglobin, serum 21.1 ng/mL 10.0-92.0 Urine drug screening test - 08/09/17 14: 18 Urine phencyclidine detection by screening method NEGATIVE NEGATIVE Urine benzodiazepines detection by screening method NEGATIVE NEGATIVE Urine cocaine detection NEGATIVE NEGATI VE Urine amphetamines detection by screening method N EGATIVE NEGATIVE Urine methamphetamine detection by screening method NEGATIVE NEGATIVE Urine cannabinoids detection by screening method N EGATIVE NEGATIVE Urine opiates detection by screening method NEGATI VE NEGATIVE Urine barbiturates detection NEGATIVE N EGATIVE Screening urine tricyclic antidepressants detection NEGATIVE NEGATIVE Urine methadone detection by screening method NEGA TIVE NEGATIVE Urine oxycodone detection NEGATIVE NEGA TIVE Urine propoxyphene detection NEGATIVE N EGATIVE Complete urinalysis with reflex to cultu re - 08/09/17 14:18 Urine color determination YELLOW NRG Urine clarity determination CLEAR NR G Urine pH measurement by test strip 7 5-9 Specific gravity of urine by test strip 1.015 1.016-1.022 Urine protein assay by test strip, semi-quantitative NEGATIVE NEGATIVE Urine glucose detection by automated test strip NE GATIVE NEGATIVE Erythrocytes detection in urine sediment by light micr oscopy 3+ NEGATIVE Urine ketones detection by automated test strip NE GATIVE NEGATIVE Urine nitrite detection by test strip NEGATIVE NEGATIVE Urine total bilirubin detection by test strip NEGA TIVE NEGATIVE Urine urobilinogen measurement by automated test strip (mass/volume) NORMAL NORMAL Urine leukocyte esterase detection by dipstick NEG ATIVE NEGATIVE Automated urine sediment erythrocyte cou nt by microscopy (number/high power field) RARE NRG Automated urine sediment leukocyte count by microscopy (number/high power field) RARE NRG Bacteria detection in urine sediment by light microsco py NEGATIVE NRG Squamous epithelial cells detection in u rine sediment by light microscopy 10-25 NRG Crystals detection in urine sediment by light microsco py NONE NRG Casts detection in urine sediment by light microscopy NONE NRG Mucus detection in urine sediment by light microscopy NEGATIVE NRG Complete urinalysis with reflex to culture NO NRG ESR/SED RATE - 01/30/19 10:50 SED RATE BY MODIFIED WESTERGREN 2 mm/h < OR = 20 Comprehensive metabolic panel - 04/17/19 15:30 Serum or plasma sodium measurement (moles/volume) 133 mmol/L 135-145 Serum or plasma potassium measurement (moles/volume) 4.0 mmol/L 3.6-5.0 Serum or plasma chloride measurement (moles/volume) 95 mmol/L 98-107 Carbon dioxide 22 mmol/L 21-32 Serum or plasma anion gap determination (moles/volume) 16 mmol/L 5-14 Serum or plasma urea nitrogen measurement (mass/volume ) 10 mg/dL 7-18 Serum or plasma creatinine measurement (mass/volume) 0.53 mg/dL 0.60-1.30 Serum or plasma urea nitrogen/creatinine mass ratio 19 NRG Serum or plasma creatinine measurement w ith calculation of estimated glomerular filtration rate > NRG Serum or plasma glucose measurement (mass/volume) 475 mg/dL 70-105 Serum or plasma calcium measurement (mass/volume) 9.3 mg/dL 8.5-10.1 Serum or plasma total bilirubin measurement (mass/volu me) 0.7 mg/dL 0.1-1.0 Serum or plasma alkaline phosphatase fredy surement (enzymatic activity/volume) 160 U/L 40-136 Serum or plasma aspartate aminotransfera se measurement (enzymatic activity/volume) 60 U/L 5-34 Serum or plasma alanine aminotransferase measurement (enzymatic activity/volume) 94 U/L 0-55 Serum or plasma protein measurement (mass/volume) 7.0 g/dL 6.4-8.2 Serum or plasma albumin measurement (mass/volume) 4.5 g/dL 3.2-4.5 CALCIUM CORRECTED 8.9 mg/dL 8.5-10.1 Complete blood count (CBC) with automate d white blood cell (WBC) differential - 04/17/19 15:30 Blood leukocytes automated count (number/volume) 4.6 10*3/uL 4.3-11.0 Blood erythrocytes automated count (number/volume) 4.76 10*6/uL 4.35-5.85 Venous blood hemoglobin measurement (mass/volume) 14.6 g/dL 11.5-16.0 Blood hematocrit (volume fraction) 39 % 35-52 Automated erythrocyte mean corpuscular volume 83 [ foz_us] 80-99 Automated erythrocyte mean corpuscular h emoglobin (mass per erythrocyte) 31 pg 25-34 Automated erythrocyte mean corpuscular h emoglobin concentration measurement (mass/volume) 37 g/dL 32-36 Automated erythrocyte distribution width ratio 12. 1 % 10.0- 14.5 Automated blood platelet count (count/volume) 242 10*3/uL 130-400 Automated blood platelet mean volume measurement 10.1 [foz_us] 7.4-10.4 Automated blood neutrophils/100 leukocytes 44 % 42-75 Automated blood lymphocytes/100 leukocytes 41 % 12-44 Blood monocytes/100 leukocytes 9 % 0-12 Automated blood eosinophils/100 leukocytes 5 % 0-10 Automated blood basophils/100 leukocytes 0 % 0-10 Blood neutrophils automated count (number/volume) 2.1 10*3 1.8-7.8 Blood lymphocytes automated count (number/volume) 1.9 10*3 1.0-4.0 Blood monocytes automated count (number/volume) 0. 4 10*3 0.0-1.0 Automated eosinophil count 0.2 10*3/uL 0 .0-0.3 Automated blood basophil count (count/volume) 0.0 10*3/uL 0.0-0.1 PT panel in platelet poor plasma by coag ulation assay - 04/17/19 15:30 Prothrombin time (PT) in platelet poor plasma by coagu lation assay 12.2 s 12.2-14.7 INR in platelet poor plasma or blood by coagulation as say 0.9 0.8-1.4 Activated partial thromboplastin time (a PTT) in platelet poor plasma bycoagulation assay - 04/17/19 15:30 Activated partial thromboplastin time (a PTT) in platelet poor plasma bycoagulation assay 22 s 24-35 Capillary blood glucose measurement by g lucometer (mass/volume) - 04/17/19 18:14 Capillary blood glucose measurement by glucometer (mas s/volume) 354 mg/dL 70-110 TSH w/ FREE T4 - 08/01/19 09:40 TSH 2.20 mIU/L NRG T4, FREE 1.0 ng/dL 0.8-1.8 LIPID PANEL - 08/01/19 09:40 CHOLESTEROL, TOTAL 182 mg/dL <200 HDL CHOLESTEROL 52 mg/dL > OR = 50 TRIGLYCERIDES 222 mg/dL <150 LDL-CHOLESTEROL 96 mg/dL (calc) NRG CHOL/HDLC RATIO 3.5 (calc) <5.0 NON HDL CHOLESTEROL 130 mg/dL (calc) <13 0 MICROALBUMIN/CREATININE RATIO, URINE - 0 08/01/19 09:40 CREATININE, RANDOM URINE 96 mg/dL 20-27 5 MICROALBUMIN 0.4 mg/dL See Note: MICROALBUMIN/CREATININE RATIO, RANDOM URINE 4 mcg/ mg creat <30 CMP - 08/01/19 09:40 GLUCOSE TNP mg/dL NRG UREA NITROGEN (BUN) 17 mg/dL 7-25 CREATININE 0.75 mg/dL 0.50-1.10 eGFR NON-AFR. NEPALESE 97 mL/min/1.73m2 > OR = 60 eGFR 112 mL/min/1.73m2 > OR = 60 BUN/CREATININE RATIO NOT APPLICABLE (calc) 6-22 SODIUM 142 mmol/L 135-146 POTASSIUM 4.0 mmol/L 3.5-5.3 CHLORIDE 101 mmol/L 98-110 CARBON DIOXIDE 20 mmol/L 20-32 CALCIUM 9.5 mg/dL 8.6-10.2 PROTEIN, TOTAL 6.7 g/dL 6.1-8.1 ALBUMIN 4.5 g/dL 3.6-5.1 GLOBULIN 2.2 g/dL (calc) 1.9-3.7 ALBUMIN/GLOBULIN RATIO 2.0 (calc) 1.0-2. 5 BILIRUBIN, TOTAL 0.8 mg/dL 0.2-1.2 ALKALINE PHOSPHATASE 90 U/L 31-125 AST 24 U/L 10-30 ALT 39 U/L 6-29 CBC w/MANUAL DIFF - 08/01/19 09:40 WHITE BLOOD CELL COUNT 6.7 Thousand/uL 3 .8-10.8 RED BLOOD CELL COUNT 4.49 Million/uL 3.8 0-5.10 HEMOGLOBIN 13.9 g/dL 11.7-15.5 HEMATOCRIT 41.2 % 35.0-45.0 MCV 91.8 fL 80.0-100.0 MCH 31.0 pg 27.0-33.0 MCHC 33.7 g/dL 32.0-36.0 RDW 13.2 % 11.0-15.0 PLATELET COUNT 245 Thousand/uL 140-400 MPV 9.1 fL 7.5-12.5 ABSOLUTE NEUTROPHILS 3953 cells/uL 1500- 7800 ABSOLUTE MONOCYTES 268 cells/uL 200-950 ABSOLUTE EOSINOPHILS 67 cells/uL 15-500 ABSOLUTE BASOPHILS 67 cells/uL 0-200 NEUTROPHILS 59.0 % NRG LYMPHOCYTES 35.0 % NRG MONOCYTES 4.0 % NRG EOSINOPHILS 1.0 % NRG BASOPHILS 1.0 % NRG ABSOLUTE LYMPHOCYTES 2345 cells/uL 850-3 900 PLATELET ESTIMATION ADEQUATE ADEQUATE COMMENT(S) NRG SPECIMEN INTEGRITY COMPROMISED - 0 09:40 SPECIMEN INTEGRITY COMPROMISED NRG EXTRA URINE SPECIMEN - 08/01/19 09:40 EXTRA URINE SPECIMEN NRG COMMENT NRG CULTURE, URINE - 09/04/19 14:19 CULTURE, URINE, ROUTINE SEE NOTE NRG Encounters ACCT No. Visit Date/Time Discharge Status Pt. Type Provider Facility Loc./Unit Complaint [id number] 09/12/2019 14:30:00 ACT [facility] [id number] 09/04/2019 14:20:00 Document Registration [id number] 08/01/2019 09:00:00 Document Registration [id number] 01/30/2019 10:40:00 Document Registration [id number] 04/17/2019 15:16:00 020 18:28:00 DIS Emergency IBETH ROSENBAUM DO [facility] FS ANIMAL BITE IN [place] [id number] 08/09/2017 12:39:00 018 15:48:00 DIS Emergency KAITLYN FROST [facility] SYNCOPE [id number] 12/31/2016 06:00:00 017 10:35:00 DIS Outpatient FELIX LAYTON DPM [facility] PLANTAR FASCITI S RIGHT FOOT [id number] 12/29/2016 13:32:00 017 14:00:00 DIS Outpatient FELIX LAYTON DPM [facility] PREOP PLANTAR FASCITI S RIGHT FOOT
[2019-09-13] MEDS ORDERED: EPIN0.3P3 IJ (13:16)
[2019-09-13 13:40] VITALS: BP 134/90
== END 2019-09-13 13:40 | disposition home or self-care (01) ==
LOC: EDUNIT# 11:17 → ER FS 11:20
DX: T63.461A Toxic effect of venom of wasps, accidental (unintentional), initial encounter (principal); J45.909 Unspecified asthma, uncomplicated; F32.9 Major depressive disorder, single episode, unspecified; Z88.2 Allergy status to sulfonamides; Z88.8 Allergy status to other drugs, medicaments and biological substances; Z79.82 Long term (current) use of aspirin
CPT/HCPCS: 93041

== ENCOUNTER 2020-07-28 14:05 | Emergency (ER) | payer BC ==
[~2020-07-28] VITALS: Ht 157.4 cm; Wt 95.2 kg
[~2020-07-28 14:05] MED LIST changes: +EPIN0.3P3 IJ; +ESCI20TA39 PO; -ESCI20TA45 PO
[2020-07-28] MEDS ORDERED: EPINEPHrine INJECTION 1 MG/ML AMP IM STA (14:13)
[2020-07-28] MEDS ORDERED: methylPREDNISolone 125 MG (Solu-MEDROL) VIAL IVP STA (14:13)
[2020-07-28] MEDS ORDERED: diphenhydrAMINE 50 MG/ML INJ (BENADRYL) IVP STA (14:13)
[2020-07-28] MEDS ORDERED: FAMOTIDINE 20MG/2ML IV (PEPCID) IVP STA (14:13)
--- NOTE | 2020-07-28 14:22 | ED General ---
General Chief Complaint: Allergic Reaction Stated Complaint: TONGUE SWELLING; BEE STING Source of Information: Patient, Other (friend) History of Present Illness Date Seen by Provider: Jul 28, 2020 Time Seen by Provider: 14:07 Initial Comments 44-year-old female presenting by private vehicle after having a bee sting to her left shoulder. She had used her EpiPen but was still having swelling to her face and throat. She was started on trouble with her breathing. She called a friend to help bring her to the emergency department rather than calling 911. She is having trouble speaking due to the swelling. 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 Timing/Duration: 1/2 Hour Severity: Severe Associated Systoms: No Chest Pain; Cough; No Diaphoresis, No Fever/Chills, No Headaches, No Malaise, No Nausea/Vomiting, No Seizure; Shortness of Air; No Syncope, No Weakness Allergies and Home Medications Allergies Coded Allergies: Sulfa (Sulfonamide Antibiotics) (Verified Allergy, Unknown, RASH, 12/29/16) fluticasone furoate (Verified Allergy, Unknown, ANAPHYLAXIS, 12/29/16) vilanterol (Verified Allergy, Unknown, ANAPHYLAXIS, 12/29/16) Uncoded Allergies: wasp (Allergy, Unknown, swelling, 09/13/19) Home Medications Albuterol Sulfate 1 Puff Puff, 2 PUFF IH Q4H PRN for WHEEZING, (Reported) 1 PUFF = 90 MCG Amoxicillin/Potassium Clav 1 Each Tablet, 1 EACH PO BID, (Reported) Aspirin 81 Mg Tablet.dr, 81 MG PO HS, (Reported) Bupropion HCl 100 Mg Tablet.er, 100 MG PO HS, (Reported) Epinephrine 0.3 Mg/0.3 Ml Auto.injct, 0.3 MG IJ ONCE PRN for allergic reaction Prescribed by: JACQUELINE MIRANDA on 07/28/20 1543 Escitalopram Oxalate 20 Mg Tablet, 20 MG PO HS, (Reported) Gabapentin 300 Mg Capsule, 300 MG PO TID, (Reported) Hydrocodone/Acetaminophen 1 Each Tablet, 1 TAB PO Q4-6 PRN for PAIN Prescribed by: ADAMA MEDRANO on 12/31/16 0935 Ibuprofen 200 Mg Tablet, 600 MG PO HS, (Reported) take 3 (200mg) tabs Ipratropium/Albuterol Sulfate 3 Ml Ampul.neb, 3 ML IH Q4H PRN for SHORTNESS OF BREATH, (Reported) Melatonin/Pyridoxine 1 Each Tablet, 5 MG PO HS, (Reported) Omeprazole Magnesium 20 Mg Tablet.dr, 20 MG PO DAILY, (Reported) Prednisone 20 Mg Tab, 40 MG PO DAILY Prescribed by: JACQUELINE MIRANDA on 07/28/20 1543 Psyllium Husk 0.52 Gm Capsule, 0.52 GM PO HS, (Reported) Vitamin E Mixed 1,000 Unit Capsule, 1,000 UNIT PO HS, (Reported) Patient Home Medication List Home Medication List Reviewed: Yes Review of Systems Review of Systems Constitutional: No chills, No fever EENTM: mouth swelling, throat swelling, other (tongue and throat swelling) Respiratory: cough Cardiovascular: no symptoms reported Gastrointestinal: no symptoms reported Genitourinary: no symptoms reported Musculoskeletal: no symptoms reported Skin: other (swelling to face, throat) Psychiatric/Neurological: Anxiety Immunological/Allergic: see HPI Past Ikjjvka-Lfkqqc-Vfksji Hx Past Med/Social Hx: Reviewed Nursing Past Med/Soc Hx Patient Social History Alcohol Use: Occasionally Uses 2nd Hand Smoke Exposure: No Recent Hopitalizations: No Immunizations Up To Date Tetanus Booster (TDap): Less than 5yrs Seasonal Allergies Seasonal Allergies: Yes Past Medical History Surgeries: Yes (OPEN HEART SX FOR 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 AGE 26, BREAST LUMPECTOMY, R BUNIONECTOMY ) Hysterectomy Respiratory: Yes Asthma Cardiac: Yes (HX OF 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 REPAIRED WHEN 26 YRS OLD, NO ISSUE NOW) 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 0.0oz. [id number]; 38.00 BMI Method:Stated General Appearance: Anxious, Obese HEENT: PERRL/EOMI, Moist Mucous Membranes, Other (swelling to tongue, face/throat. trouble speaking due to swelling. handling her own secretions still) Neck: Non Tender, Other (swelling to throat and neck) Respiratory: Chest Non Tender, Decreased Breath Sounds Cardiovascular: Normal Peripheral Pulses, Tachycardia Gastrointestinal: No Pulsatile Mass, Non Tender, Soft Extremity: Normal Capillary Refill Neurologic/Psychiatric: Alert Skin: Warm/Dry, Erythema Procedures/Interventions Suture Size: 4-0 Progress/Results/Core Measures Suspected Sepsis SIRS Temperature: Pulse: Respiratory Rate: Laboratory Tests 07/28/20 14:13: White Blood Count 12.6H Blood Pressure / Mean: Laboratory Tests 07/28/20 14:13: Creatinine 0.78, Platelet Count 354, Total Bilirubin 0.6 Results/Orders Lab Results Laboratory Tests Test 07/28/20 14:13 Range/Units White Blood Count 12.6 H 4.3-11.0 10^3/uL Red Blood Count 4.83 4.35-5.85 10^6/uL Hemoglobin 14.9 11.5-16.0 G/DL Hematocrit 42 35-52 % Mean Corpuscular Volume 86 80-99 FL Mean Corpuscular Hemoglobin 31 25-34 PG Mean Corpuscular Hemoglobin Concent 36 32-36 G/DL Red Cell Distribution Width 12.9 10.0-14.5 % Platelet Count 354 130-400 10^3/uL Mean Platelet Volume 9.5 7.4-10.4 FL Immature Granulocyte % (Auto) 1 % Neutrophils (%) (Auto) 59 42-75 % Lymphocytes (%) (Auto) 32 12-44 % Monocytes (%) (Auto) 8 0-12 % Eosinophils (%) (Auto) 1 0-10 % Basophils (%) (Auto) 0 0-10 % Neutrophils # (Auto) 7.4 1.8-7.8 X 10^3 Lymphocytes # (Auto) 4.0 1.0-4.0 X 10^3 Monocytes # (Auto) 1.0 0.0-1.0 X 10^3 Eosinophils # (Auto) 0.1 0.0-0.3 10^3/uL Basophils # (Auto) 0.1 0.0-0.1 10^3/uL Immature Granulocyte # (Auto) 0.1 0.0-0.1 10^3/uL Sodium Level 136 135-145 MMOL/L Potassium Level 4.1 3.6-5.0 MMOL/L Chloride Level 99 98-107 MMOL/L Carbon Dioxide Level 25 21-32 MMOL/L Anion Gap 12 5-14 MMOL/L Blood Urea Nitrogen 18 7-18 MG/DL Creatinine 0.78 0.60-1.30 MG/DL Estimat Glomerular Filtration Rate > 60 BUN/Creatinine Ratio 23 Glucose Level 199 H 70-105 MG/DL Calcium Level 9.8 8.5-10.1 MG/DL Corrected Calcium 8.5-10.1 MG/DL Total Bilirubin 0.6 0.1-1.0 MG/DL Aspartate Amino Transf (AST/SGOT) 32 5-34 U/L Alanine Aminotransferase (ALT/SGPT) 50 0-55 U/L Alkaline Phosphatase 94 40-136 U/L Total Protein 7.4 6.4-8.2 GM/DL Albumin 4.9 H 3.2-4.5 GM/DL My Orders Orders - JACQUELINE MIRANDA MD Comprehensive Metabolic Panel (07/28/20 14:13) Ed Iv/Invasive Line Start (07/28/20 14:13) Cbc With Automated Diff (07/28/20 14:13) Methylprednisolone Sod Succ (Solu-Medrol (07/28/20 14:13) Diphenhydramine Injection (Benadryl Inje (07/28/20 14:13) Famotidine Injection (Pepcid Injection) (07/28/20 14:13) Epinephrine 1 Mg Injection (Adrenalin I (07/28/20 14:13) Vital Signs/I&O 07/28/20 07/28/20 14:11 16:48 Temp 36.7 36.7 Pulse 168 94 Resp 24 20 B/P (MAP) 164/97 (119) 159/91 (119) Pulse Ox 95 O2 Delivery Room Air Room Air Capillary Refill : Progress Note #1: Progress Note place on cardiac client relationship consultant. start IV and administer solumedrol 125 mg, famotidine 20 mg, diphenhydramine 50 mg, and repeat epinephrine 0.3 mg IM. Progress Note #2: Time: 15:20 Progress Note Labs stable with elevated glucose 190. She has improved swelling and is swallowing better. she is able to speak now and feels improved. She still reports some mild "weird sensation" in her throat. Will monitor an additional 45-60 minutes and if continues to improve and stay stable will discharge to home on 3 days prednisone and refill of Epi-pen. Dietitian Teaching on follow up and return precautions. Progress Note #3: Time: 16:30 Progress Note Patient was still feeling like her swallowing and breathing was doing better. She is still speaking clearly. She is complaining of feeling a little dizzy and lightheaded. Her oxygen saturation and vital signs all remained stable with a O2 sat around 96% on room air. When she checked her device to see what her blood sugar was running it was at 278. She also stated she had not eaten a full meal since this morning and had only had apple at lunchtime. This certainly could be contributing to her symptoms still addition to the steroid, Benadryl, epinephrine. Stressed the importance of having a protein and fiber-containing meal. Advised to stay closer to [place] for tonight and stay with a friend so that if she has worsening symptoms she could call 911 and come back immediately so that she could be admitted for things for worsening symptoms. Refill of the EpiPen and 3-day course of steroid burst was sent in. She was to start Ozempic for blood sugar control as well and was planning on starting Tuesday and I advised her to go ahead and start that today. Departure Impression Primary Impression: Allergic angioedema Qualified Codes: T78.3XXA - Angioneurotic edema, initial encounter Additional Impressions: Bee sting-induced anaphylaxis Qualified Codes: T63.441A - Toxic effect of venom of bees, accidental (unintentional), initial encounter Hyperglycemia due to diabetes mellitus Disposition: 01 HOME, SELF-CARE Condition: Improved Departure-Patient Inst. Decision time for Depature: 16:37 Referrals: MEHDI SCHAEFER MD (PCP/Family) Primary Care Physician Patient Instructions: Insect Bites and Stings ED, Allergic Reaction ED Add. Discharge Instructions: If swelling worsens or having trouble swallowing or trouble breathing then call 911 as you would need additional medicine and admit to the hospital to treat your allergic reaction. In the future if you have another episode with a sting then use your Epi-Pen but you could also take Benadryl 50 mg to help with symptoms. Call 911 and be seen right away. The faster you get medicine for your allergic reaction, the lower the chance for you to from a severe allergic reaction. You could take Benadryl (Diphenhydramine) 25 to 50 mg every 4 hours along with the steroid to help with swelling and itching. Start your Ozempic today to help manage the elevated blood sugars. Eat a meal with fiber and protein when you leave here to help stabilize your sugars All discharge instructions reviewed with patient and/or family. Voiced understanding. Scripts Prednisone (Prednisone) 20 Mg Tab 40 MG PO DAILY for allergic reaction for 3 Days, #6 TAB 0 Refills Prov: JACQUELINE MIRANDA MD 07/28/20 Epinephrine (Epipen 2-Alex) 0.3 Mg/0.3 Ml Auto.injct 0.3 MG IJ ONCE PRN for allergic reaction for 30 Days, #1 PKG 0 Refills Prov: JACQUELINE MIRANDA MD 07/28/20 JACQUELINE MIRANDA MD Jul 28, 2020 14:22
[2020-07-28 14:32] LABS: HEMATOCRIT 42 % (35-52); HEMOGLOBIN 14.9 G/DL (11.5-16.0); MEAN CORPUSCULAR HEMOGLOBIN 31 PG (25-34); MEAN CORPUSCULAR HGB CONC 36 G/DL (32-36); MEAN CORPUSCULAR VOLUME 86 FL (80-99); WHITE BLOOD COUNT 12.6 10^3/uL (4.3-11.0)
[2020-07-28 14:33] LABS: BASOPHILS # (AUTO) 0.1 10^3/uL (0.0-0.1); BASOPHILS % (AUTO) 0 % (0-10); EOSINOPHILS # (AUTO) 0.1 10^3/uL (0.0-0.3); EOSINOPHILS % (AUTO) 1 % (0-10); LYMPHOCYTES % (AUTO) 32 % (12-44); MEAN PLATELET VOLUME 9.5 FL (7.4-10.4); MONOCYTES % (AUTO) 8 % (0-12); NEUTROPHILS # (AUTO) 7.4 X 10^3 (1.8-7.8); NEUTROPHILS % (AUTO) 59 % (42-75); PLATELET COUNT 354 10^3/uL (130-400)
[2020-07-28 14:50] LABS: BUN/CREATININE RATIO 23; CARBON DIOXIDE 25 MMOL/L (21-32); CHLORIDE 99 MMOL/L (98-107); CREATININE SERUM 0.78 MG/DL (0.60-1.30); GFR ESTIMATED > 60; POTASSIUM 4.1 MMOL/L (3.6-5.0); SODIUM 136 MMOL/L (135-145)
[2020-07-28 14:51] LABS: ALANINE AMINOTRANSFERASE 50 U/L (0-55); ALBUMIN 4.9 GM/DL (3.2-4.5); ALKALINE PHOSPHATASE 94 U/L (40-136); BILIRUBIN,TOTAL 0.6 MG/DL (0.1-1.0); CALCIUM 9.8 MG/DL (8.5-10.1); GLUCOSE 199 MG/DL (70-105); TOTAL PROTEIN 7.4 GM/DL (6.4-8.2)
[2020-07-28] MEDS ORDERED: PRD20T PO (15:43)
[2020-07-28] MEDS ORDERED: EPIN0.3P3 IJ (15:43)
[2020-07-28 16:48] VITALS: BP 159/91
== END 2020-07-28 16:48 | disposition home or self-care (01) ==
LOC: EDUNIT# 14:05 → ER FS 14:06
DX: T78.3XXA Angioneurotic edema, initial encounter (principal); T63.441A Toxic effect of venom of bees, accidental (unintentional), initial encounter; E11.65 Type 2 diabetes mellitus with hyperglycemia; E66.9 Obesity, unspecified; J45.909 Unspecified asthma, uncomplicated; F32.9 Major depressive disorder, single episode, unspecified; Z68.38 Body mass index [BMI] 38.0-38.9, adult; Z79.82 Long term (current) use of aspirin; Z79.52 Long term (current) use of systemic steroids; Z79.899 Other long term (current) drug therapy
CPT/HCPCS: 36415; 80053; 85025

== ENCOUNTER → 2021-12-17 | Outpatient (CLI) | payer SELFPAY ==
[~2021-12-17] MED LIST changes: +ALBU8.5H6 IH; +BUPR-104 PO; -BUPR100T8 PO; +PRD20T PO; -RT-ALBUINH IH
--- NOTE | 2021-12-17 16:56 | Diagnostic Imaging Report ---
EXAMINATION: CT calcium scoring without contrast. TECHNIQUE: Multiple contiguous axial images were obtained through the chest without the use of intravenous contrast for purposes of calcium scoring. All CT scans use one or more of the following dose optimizing techniques: automated exposure control, MA and/or KvP adjustment based on patient size and exam type or iterative reconstruction. HISTORY: Hyperlipidemia COMPARISON: None available. FINDINGS: The calculated coronary artery calcium score is 0. There is no edema or pneumonia. No pleural effusion. No pneumothorax. No suspicious nodules. Heart size is normal. No pericardial effusion. Aorta is normal in caliber. There is no axillary or supraclavicular lymphadenopathy. There is no mediastinal lymphadenopathy. Limited views of the upper abdomen are unremarkable. There are no suspicious osseus lesions. IMPRESSION: 1. Calculated coronary artery calcium score of 0. Please note that the computer software erroneously identified areas of streak artifact as calcium. There is no coronary artery calcium. Dictated by: Dictated on workstation # [id number]
== END ==
LOC: RAD FS 12:38
PROVIDERS: ATTEND Nurse Practitioner Family
DX: E78.5 Hyperlipidemia, unspecified (principal)
CPT/HCPCS: 75571